=== PATIENT | male | born 1970 | race American Indian/Alaskan Native ===

== ENCOUNTER 2016-07-12 12:35 | Emergency (ER) | payer MEDICAID ==
--- NOTE | 2016-07-12 16:15 | Emergency Department Report ---
Entered by JM GOMEZ, acting as scribe for BENTLEY MATHEWS NP. Chief Complaint: Dental/Oral Stated Complaint: SEVERE TOOTHACHE/SWOLLEN LEGS/FEET Time Seen by Provider: 07/12/16 16:06 - HPI History of Present Illness: Patient presents to the ED c/o a severe tooth ache, bilateral leg and feet swelling. Denies chest pain and SOB. Notes non-compliancy with diuretics for 2 days. - ROS Review of Systems: All other systems are negative unless stated in HPI above. - Exam Vital Signs: Vital Signs 07/12/16 14:28 Temperature 98.9 F Pulse Rate 78 Respiratory 16 Rate Blood Pressure 168/119 O2 Sat by Pulse 100 Oximetry Physical Exam: General: alert and oriented x 3 Respiratory: normal lung sounds bilaterally. No respiratory distress; no rhonchi , wheezes, or rales Head: frontal sinus congestion Skin: bilateral leg swelling MSE screening note: Focused history and physical exam performed. Due to findings the following was ordered: SEVERE DENTAL PAIN AND CARIES BEEN SEVERAL YEARS SINCE MD ALSO SINUS CO BUT HIS BP INC- OUT OF MEDS NOW W BLE EDEMA. STATES AT LEAST TO DAY HE CAN GET SHOE ON NEW TO [facility]A [place]. NO SOB OR CP. CHECK CR. HOME RX W REFERRALS. ED Medical Decision Making - Medical Decision Making Patient seen by provider in triage area. Lab work will be taken on patient. ED Disposition for MSE Condition: Stable Referrals: PRIMARY CARE, [Primary Care Provider] - 3-5 Days This documentation as recorded by the scribe,JM GOMEZ,accurately reflects the service I personally performed and the decisions made by ,BENTLEY ROSALES NP.
[2016-07-12 16:59] LABS: Basophils % (Auto) 0.4 % (0.0-1.8); Eosinophils % (Auto) 3.2 % (0.0-4.3); Hematocrit 44.7 % (35.5-45.6); Hemoglobin 14.9 gm/dl (11.8-15.2); Mean Corpuscular HGB Conc 33 % (32-34); Mean Corpuscular Hemoglobin 31 pg (28-32); Mean Corpuscular Volume 92 fl (84-94); Platelet Count 168 K/mm3 (140-440); Red Blood Count 4.86 M/mm3 (3.65-5.03); Red Cell Distribution Width 14.7 % (13.2-15.2); White Blood Count 6.5 K/mm3 (4.5-11.0)
[2016-07-12 17:09] LABS: Alanine Aminotransferase 24 units/L (7-56); Albumin 3.8 g/dL (3.9-5); Albumin/Globulin Ratio 1.2 %; Alkaline Phosphatase 64 units/L (35-129); Anion Gap 17 mmol/L; BUN/Creatinine Ratio 15.55; Bilirubin,Total 0.4 mg/dL (0.1-1.2); Blood Urea Nitrogen 14 mg/dL (9-20); Carbon Dioxide 26 mmol/L (22-30); Chloride 99.8 mmol/L (98-107); Glucose 90 mg/dL (75-100); Potassium 3.8 mmol/L (3.6-5.0); Sodium 139 mmol/L (137-145)
[2016-07-12 18:37] LABS: Bilirubin,Urine NEG (Negative); Blood,Urine NEG (Negative); Ketones,Urine TR mg/dL (Negative); Leukocyte Esterase,Urine NEG (Negative); Mucus,Urine 3+ /HPF; Nitrite,Urine NEG (Negative); Protein,Urine <15 mg/dL mg/dL (Negative); Urobilinogen,Urine < 2.0 mg/dL (<2.0)
[2016-07-13 01:19] VITALS: BP 165/96
--- NOTE | 2016-07-13 01:39 | Emergency Department Report ---
HPI - General Chief Complaint: Dental/Oral Time Seen by Provider: 07/13/16 00:51 - HPI HPI: Patient here complaining of toothache to bilateral lower tooth 2 weeks. Denies any fever or chills he said his pain is 10 out of 10. Feels achy worse with eating. Denies any throat or difficulty swallowing. Denies any swelling. Patient is also complaining that he is out of his blood pressure medication and his blood pressures up was 168/119 in triage and he said he needs an prescription for metoprolol, Ambien, Benadryl, tramadol and lisinopril with HCTZ. Patient said he has a history of high blood pressure. Denies any history of heart disease. He is asymptomatic with his elevated blood pressure. Which means that he doesn't have any chest pain, shortness of breath, nausea vomiting, headache, dizziness, blurred vision. Patient also with swelling to both his legs and he said he said that in the past because he hasn't been taking his water pill and it came back. He said he just moved from [place] where he took the bus to get here 2 weeks ago. Patient also said he has been worked up for heart problems in the past and tests are negative. He denies any history of blood clots in his family or himself. Denies any recent surgery. Denies any redness to lower extremity. Denies any calf pain. ED Past Medical Hx - Past Medical History Previous Medical History?: Yes Hx Hypertension: Yes Hx Diabetes: Yes ( prediabetic and not on medication) - Surgical History Past Surgical History?: Yes Additional Surgical History: RT hand. right Achilles - Family History Family history: diabetes, hypertension - Social History Smoking Status: Never Smoker Substance Use Type: None - Medications Home Medications: Home Medications Medication Instructions Recorded Confirmed Last Taken Type Acetaminophen/Codeine [Tylenol 1 tab PO Q6H PRN #14 tab 07/13/16 Unknown Rx /Codeine # 3 tab] Lisinopril/Hydrochlorothiazide 1 tab PO QDAY #30 tab 07/13/16 Unknown Rx [Zestoretic 20-25 mg] Metoprolol [Lopressor TAB] 50 mg PO QDAY #30 tablet 07/13/16 Unknown Rx Penicillin Vk [Veetids TAB] 500 mg PO Q8H #60 tablet 07/13/16 Unknown Rx Zolpidem [Ambien] 5 mg PO QHS PRN #12 tablet 07/13/16 Unknown Rx ED Review of Systems ROS: Stated complaint: SEVERE TOOTHACHE/SWOLLEN LEGS/FEET Other details as noted in HPI Comment: All other systems reviewed and negative Constitutional: denies: chills, fever Eyes: denies: eye pain, vision change ENT: dental pain. denies: ear pain, throat pain, congestion Respiratory: no symptoms reported. denies: cough, orthopnea, shortness of breath, SOB with exertion, SOB at rest, stridor, wheezing Cardiovascular: edema. denies: chest pain, palpitations, syncope Gastrointestinal: abdominal pain. denies: nausea, vomiting, diarrhea, constipation Genitourinary: discharge, other (vaginal spotting). denies: dysuria, frequency , hematuria Musculoskeletal: denies: back pain, arthralgia Skin: denies: rash Neurological: denies: headache, weakness, numbness, paresthesias, confusion, abnormal gait, vertigo Physical Exam - Physical Exam Vital Signs: Vital Signs 07/12/16 07/13/16 14:28 01:18 Temperature 98.9 F Pulse Rate 78 74 Respiratory 16 20 Rate Blood Pressure 168/119 Blood Pressure 165/96 [Right] O2 Sat by Pulse 100 97 Oximetry General: This is a 46-year-old male well-nourished well-developed in no acute distress. Physical Exam: Head: Normocephalic atraumatic Mouth: Moist, no pharyngeal exudate or erythema. Uvula is midline and oral airway is patent. No facial swelling. No peritonsillar abscesses. Positive dental caries. No cellulitic areas. Oral mucosa. No dental tenderness noted. Nose: Congested with erythema to mucosa. Clear Drainage. Maxillary and frontal sinuses nontender to palpate Neck: Supple, no C-spine tenderness, no tracheal deviation. Nontender to palpate. no adenopathy. No JVD and no carotid bruit Abdomen: Soft, nontender to palpate in all quadrants, normal bowel sounds in all quadrant and negative CVA tenderness bilaterally. Eyes: Bilateral pupils equal and reactive to light, bilateral EOM intact. Bilateral sclera and conjunctiva without injection. Normal accommodation. Funduscopic exam is normal Lungs: Clear to auscultate bilaterally no rhonchi wheezes or rales. Normal work of breathing .extremity; No CC positive edema bilateral lower extremity.. +2 pulses. No neurovascular compromise . No calf tenderness and negative Homans sign. Capillary refill is less than 3 seconds. No erythema noted to lower extremities. Nontender to palpate. No signs of tendon injury. Edema is nonpitting. Cardiovascular: S1-S2, regular rate rhythm. No murmurs. Skin: clean Dry and intact no rash no lesions Psych: Normal mood and behavior ED Course Vital Signs 07/12/16 07/13/16 14:28 01:18 Temperature 98.9 F Pulse Rate 78 74 Respiratory 16 20 Rate Blood Pressure 168/119 Blood Pressure 165/96 [Right] O2 Sat by Pulse 100 97 Oximetry - Reevaluation(s) Reevaluation #1: 07/13/16 01:49 Patient stable throughout ED stay. 07/13/16 02:28 ED Medical Decision Making - Lab Data Result diagrams: 07/12/16 16:25 07/12/16 16:25 Lab Results 07/12/16 07/12/16 07/12/16 Range/Units 16:25 16:25 16:27 WBC 6.5 (4.5-11.0) K/mm3 RBC 4.86 (3.65-5.03) M/mm3 Hgb 14.9 (11.8-15.2) gm/dl Hct 44.7 (35.5-45.6) % MCV 92 (84-94) fl MCH 31 (28-32) pg MCHC 33 (32-34) % RDW 14.7 (13.2-15.2) % Plt Count 168 (140-440) K/mm3 Lymph % (Auto) 43.7 H (13.4-35.0) % [place] % (Auto) 12.2 H (0.0-7.3) % Eos % (Auto) 3.2 (0.0-4.3) % Baso % (Auto) 0.4 (0.0-1.8) % Lymph # 2.8 (1.2-5.4) K/mm3 [place] # 0.8 (0.0-0.8) K/mm3 Eos # 0.2 (0.0-0.4) K/mm3 Baso # 0.0 (0.0-0.1) K/mm3 Seg Neutrophils % 40.5 (40.0-70.0) % Seg Neutrophils # 2.6 (1.8-7.7) K/mm3 Sodium 139 (137-145) mmol/L Potassium 3.8 (3.6-5.0) mmol/L Chloride 99.8 (98-107) mmol/L Carbon Dioxide 26 (22-30) mmol/L Anion Gap 17 mmol/L BUN 14 (9-20) mg/dL Creatinine 0.9 (0.8-1.5) mg/dL Estimated GFR > 60 ml/min BUN/Creatinine Ratio 15.55 % Glucose 90 (75-100) mg/dL Calcium 9.0 (8.4-10.2) mg/dL Total Bilirubin 0.4 (0.1-1.2) mg/dL AST 24 (5-40) units/L ALT 24 (7-56) units/L Alkaline Phosphatase 64 (35-129) units/L Total Protein 7.0 (6.3-8.2) g/dL Albumin 3.8 L (3.9-5) g/dL Albumin/Globulin Ratio 1.2 % Urine Color Yellow (Yellow) Urine Turbidity Clear (Clear) Urine pH 5.0 (5.0-7.0) Ur Specific [place] 1.029 (1.003-1.030) Urine Protein <15 mg/dl (Negative) mg/dL Urine Glucose (UA) Neg (Negative) mg/dL Urine Ketones Tr (Negative) mg/dL Urine Blood Neg (Negative) Urine Nitrite Neg (Negative) Urine Bilirubin Neg (Negative) Urine Urobilinogen < 2.0 (<2.0) mg/dL Ur Leukocyte Esterase Neg (Negative) Urine WBC (Auto) 1.0 (0.0-6.0) /HPF Urine RBC (Auto) 4.0 (0.0-6.0) /HPF U Epithel Cells (Auto) < 1.0 (0-13.0) /HPF Urine Mucus 3+ /HPF - Medical Decision Making ED course: Patient with diagnosis of toothache and dental caries. He is also bilateral leg swelling/edema. This in the past and he did not take his water medication. She does not have a primary care physician in [place] because he said he just moved from [place]. I discussed this case with Dr. Donovan. I discussed patient presentation, medical history, complaint, physical findings and lab findings. He also does not want patient to have BNP because patient is not in any respiratory distress or chest x-ray. Labs is within normal limits except his albumin it is mildly decreased at 3.8.DR. Trung rogel with patient going home his blood pressure has stabilized without any medication, he is not having any chest pain or shortness of breath with or without exertion. Perc criteria No need for further workup, as <2% chance of PE. Basic metabolic criteria patient is at low risk for DVT. Critical care attestation.: If time is entered above; I have spent that time in minutes in the direct care of this critically ill patient, excluding procedure time. ED Disposition Clinical Impression: Toothache, Dental caries, Edema extremities, Encounter for medication refill Hypertension Qualifiers: Hypertension type: essential hypertension Qualified Code(s): I10 - Essential ( primary) hypertension Disposition: DISCHARGED TO HOME OR SELFCARE Is pt being admited?: No Does the pt Need Aspirin: No Condition: Stable Instructions: Dental Caries (ED), Leg Edema (ED), Hypertension (ED), Toothache (ED) Additional Instructions: . Follow up with your primary care physician and if he doesn't have one to follow-up with outside Medical Center to manage her chronic medical problems. He can also follow up with [facility] to manage dental caries and toothache. Take Antibiotic as prescribed. Need to call [place] in the morning to schedule appointment for follow-up visit and further renewal of medication. Prescriptions: Zolpidem [Ambien] 5 mg PO QHS PRN #12 tablet PRN Reason: Sleep Acetaminophen/Codeine [Tylenol /Codeine # 3 tab] 1 tab PO Q6H PRN #14 tab PRN Reason: Toothache Lisinopril/Hydrochlorothiazide [Zestoretic 20-25 mg] 1 tab PO QDAY #30 tab Metoprolol [Lopressor TAB] 50 mg PO QDAY #30 tablet Penicillin Vk [Veetids TAB] 500 mg PO Q8H #60 tablet Referrals: [facility] [Outside] - 2-3 Days [facility] [Outside] - 07/16/16 Forms: Work/School Release Form(ED)
== END 2016-07-13 02:57 | disposition home or self-care (01) ==
LOC: ED 12:35
DX: K02.9 Dental caries, unspecified (principal); K08.89 Other specified disorders of teeth and supporting structures; R60.0 Localized edema; I10 Essential (primary) hypertension; E11.9 Type 2 diabetes mellitus without complications
CPT/HCPCS: 36415; 80053; 81001; 85025; 99283